=== PATIENT | male | born 1960 | race Caucasian/White ===

== ENCOUNTER → 2016-10-28 | Outpatient (RCR) | payer SELFPAY ==
[~2016-10-28] MED LIST: ASPRIN PO; LANTUS SQ; LISINOPRIL; METF-380 PO; NOVOLOG SQ
== END | disposition home or self-care (01) ==
PROVIDERS: ATTEND Nurse Practitioner Family
DX: M75.02 Adhesive capsulitis of left shoulder (principal)

== ENCOUNTER 2017-01-14 08:01 | Outpatient (RCR) | payer SELFPAY | END 2017-01-14 08:51 | disposition home or self-care (01) | PROVIDERS: ATTEND Nurse Practitioner Family | DX: M75.02 Adhesive capsulitis of left shoulder (principal) ==

== ENCOUNTER → 2017-02-04 | Outpatient (CLI) | payer SELFPAY ==
--- NOTE | 2017-02-05 09:37 | STRESS TEST ---
PROCEDURE PHYSICIAN: SAUL HARDWICK DATE OF PROCEDURE: 02/04/2017 EXERCISE STRESS TEST REPORT: REFERRING PHYSICIAN: Dr. Ochoa INDICATION: Shortness of breath. PROCEDURE DETAILS: The patient was brought to the stress lab after informed consent was taken. Exercise stress test was performed according to the [facility] protocol. Baseline EKG showed sinus rhythm with no ST-T wave abnormalities. Heart rate was 59 bpm. Blood pressure was 100/77 mmHg. The patient exercise for 10 minutes 59 seconds and achieved 12.5 METs. The patient achieved 146 bpm which is 90% of the maximum predicted heart rate response. Blood pressure was 214/67 mmHg. The patient did not have any ST-T wave changes. The stress test was stopped secondary to fatigue. The patient did not have any chest pain. There were no arrhythmias noted. CONCLUSION: 1. Excess stress test is negative for ischemia. 2. Hypertensive response to exercise. 3. Good functional capacity. 4. The patient was requested to take an extra lisinopril 20 mg as soon as he gets home. His blood pressure on discharge from the stress lab was 169/76 mmHg. He was also requested to call his primary care physician tomorrow for further instruction. Job ID: [id number] Dictated Date: 02/04/2017 16:13:28 Manager Valuation Date: 02/05/2017 09:32:23 / lula
== END ==
LOC: CARD 09:56
PROVIDERS: ATTEND Internal Medicine Interventional Cardiology
DX: R06.09 Other forms of dyspnea (principal); R07.89 Other chest pain
CPT/HCPCS: 93017

== ENCOUNTER 2018-11-02 09:17 | Outpatient (RCR) | payer OTHER | END 2018-11-07 | disposition home or self-care (01) | PROVIDERS: ATTEND Nurse Practitioner Family | DX: M25.511 Pain in right shoulder (principal); E11.9 Type 2 diabetes mellitus without complications; Z98.890 Other specified postprocedural states ==

== ENCOUNTER → 2020-09-06 | Outpatient (CLI) | payer SELFPAY ==
[~2020-09-06] VITALS: Ht 188 cm; Wt 84.0 kg
[~2020-09-06] MED LIST changes: +BAMLANIVIMAB (NON FORM) 700 MG in NS (IVPB) 100 ML IV ONE; +EPINEPHrine INJECTION 1 MG/ML AMP IM PRN; +diphenhydrAMINE 50 MG/ML INJ (BENADRYL) IV PRN
[2020-09-06 07:50] VITALS: BP 118/60
[2020-09-06 09:30] VITALS: BP 121/70
== END ==
LOC: INFUSION 07:52
PROVIDERS: ATTEND Family Medicine
DX: Z23 Encounter for immunization (principal); U07.1 COVID-19

== ENCOUNTER 2021-05-29 16:33 | Emergency (ER) | payer SELFPAY ==
[~2021-05-29] VITALS: Ht 187 cm; Wt 86.0 kg
[~2021-05-29 16:33] MED LIST changes: -BAMLANIVIMAB (NON FORM) 700 MG in NS (IVPB) 100 ML IV ONE; -EPINEPHrine INJECTION 1 MG/ML AMP IM PRN; -diphenhydrAMINE 50 MG/ML INJ (BENADRYL) IV PRN
[2021-05-29 16:35] VITALS: BP 156/98
[2021-05-29] MEDS ORDERED: TETANUS,DIPTH,PERTUSS P/F (BOOSTRIX) 0.5 ML VIAL IM ONE (16:45)
--- NOTE | 2021-05-29 16:45 | ED Headache ---
General Stated Complaint: HEAD INJURY Source: patient Exam Limitations: no limitations (XIANG ANDINO APRN) History of Present Illness Date Seen by Provider: May 29, 2021 Time Seen by Provider: 16:41 Initial Comments To ER by private vehicle accompanied by his son with reports of a head injury. He states that he did not duck enough and he walked into a piece of metal hanging down from a farm implement that he was beneath. Tetanus is not up-to-date. No loss of consciousness. He recalls all events. No nausea or vomiting. Does have a headache localized to the right side where the laceration is at. Denies any neck pain or tingling in his hands or feet. He is on a baby aspirin. Timing/Duration: 1-3 hours Severity/Quality: moderate Location: frontal Prior Headaches/Recent Trauma: no recent headache/trauma Associated Symptoms: denies symptoms (XIANG ANDINO APRN) Allergies and Home Medications Allergies Coded Allergies: adhesive (Verified Allergy, Unknown, 05/29/21) Patient Home Medication List Home Medication List Reviewed: Yes (XIANG ANDINO APRN) Metformin Hcl (Metformin 1000 Mg) 1,000 Mg Tablet, 1 EACH PO BID WITH MEALS, (Reported) Entered as Reported by: SANGEETA LACY on 08/24/111653 [Asprin] , 325 MG PO DAILY, (Reported) Entered as Reported by: SANGEETA LACY on 08/24/111658 [Lantus] , 10 UNIT SQ DAILY, (Reported) Entered as Reported by: SANGEETA LACY on 08/24/11 1700 [Lisinopril] , 5 MG DAILY, (Reported) Entered as Reported by: SANGEETA LACY on 08/24/111653 [Novolog] , 4 UNIT SQ TID, (Reported) Entered as Reported by: SANGEETA LACY on 08/24/111658 Review of Systems Review of Systems Constitutional: see HPI Eyes: No Symptoms Reported Ears, Nose, Mouth, Throat: no symptoms reported Respiratory: no symptoms reported Cardiovascular: no symptoms reported Genitourinary: no symptoms reported Musculoskeletal: no symptoms reported Skin: no symptoms reported Psychiatric/Neurological: No Symptoms Reported (XIANG ANDINO APRN) Physical Exam Vital Signs Vital Signs - First Documented 05/29/21 16:35 Temp 36.3 Pulse 66 Resp 16 B/P (MAP) 156/98 (117) Pulse Ox 97 O2 Delivery Room Air (COOKIE LEDESMA MD) Vital Signs Capillary Refill : (XIANG ANDINO APRN) Height, Weight, BMI Height: '" Weight: lbs. oz. kg; BMI Method: General Appearance: WD/WN, no apparent distress, other (Alert and oriented GCS 15. There is a 2.5 cm laceration to the right side of the frontal scalp without active bleeding. No hemotympanum or regan sign.) HEENT: PERRL/EOMI, normal ENT inspection, TMs normal Neck: non-tender, full range of motion Cardiovascular: regular rate, rhythm, no murmur Respiratory: no respiratory distress, no accessory muscle use Gastrointestinal: normal bowel sounds, non tender Extremities: normal range of motion, non-tender Psychiatric: alert, oriented x 3 Crainal Nerves: normal hearing, normal speech Skin: normal color, warm/dry (XIANG ANDINO APRN) Procedures/Interventions Wound Location: Scalp Wound Length (cm): 2.5 Wound's Depth, Shape: linear, sub Q Wound Explored: clean Anesthesia: Lidocaine w/ Epi Volume Anesthetic (ccs): 2 Staple Repair: Stapler 35W 6 aditi (XIANG ANDINO APRN) Progress/Results/Core Measures Results/Orders Medications Given in ED Current Medications Medications Dose Ordered Sig/Jose Route Start Time Stop Time Status Last Admin Dose Admin Diphtheria/ Tetanus/Acell Pertussis 0.5 ml ONCE ONCE IM 05/29/21 16:45 05/29/21 16:46 DC 05/29/21 17:01 0.5 ML (COOKIE LEDESMA MD) Vital Signs/I&O 05/29/21 16:35 Temp 36.3 Pulse 66 Resp 16 B/P (MAP) 156/98 (117) Pulse Ox 97 O2 Delivery Room Air (COOKIE LEDESMA MD) Departure Impression Primary Impression: Scalp laceration Disposition: HOME, SELF-CARE Condition: Stable Departure-Patient Inst. Decision time for Depature: 16:44 (XIANG ANDINO APRN) Referrals: CHAYA CHURCH DO (PCP/Family) Primary Care Physician Patient Instructions: Laceration Repair With [place] (DC) Add. Discharge Instructions: 1. you can shower starting tonight. Return to ER to have the stitches removed in 5-7 days. Return to ER before then for any confusion, nausea/vomiting, severe headache. ATTENDING PHYSICIAN NOTE: I was physically present as attending physician in the emergency department during the care of this patient, but I was not directly involved in the decision making or delivery of care for this patient. (COOKIE LEDESMA MD) XIANG ANDINO APRN May 29, 2021 16:45 COOKIE LEDESMA MD May 29, 2021 18:30
== END 2021-05-29 17:03 | disposition home or self-care (01) ==
LOC: EDUNIT# 16:33 → ER 16:36
DX: S01.01XA Laceration without foreign body of scalp, initial encounter (principal); Z23 Encounter for immunization; Z79.82 Long term (current) use of aspirin; W26.8XXA Contact with other sharp object(s), not elsewhere classified, initial encounter
CPT/HCPCS: 90715; 99284

== ENCOUNTER 2021-06-04 16:35 | Emergency (ER) | payer SELFPAY ==
[~2021-06-04] VITALS: Ht 177.8 cm; Wt 78.5 kg
[2021-06-04 16:40] VITALS: BP 144/83
== END 2021-06-04 16:50 | disposition home or self-care (01) ==
LOC: EDUNIT# 16:35 → ER 16:37
DX: Z48.02 Encounter for removal of sutures (principal)

== ENCOUNTER 2021-12-29 05:35 | Outpatient (CLI) | payer SELFPAY ==
[~2021-12-29] VITALS: Ht 188 cm; Wt 84.8 kg
[2021-12-29] MEDS ORDERED: INSU300I SQ (11:30)
[2021-12-29] MEDS ORDERED: VITA0.4T18 PO (11:30)
[2021-12-29] MEDS ORDERED: NF-VITD400 PO (11:30)
[2021-12-29] MEDS ORDERED: SIMV10TA26 PO (11:30)
[2021-12-29] MEDS ORDERED: ASPI-999 PO (11:30)
[2021-12-29] MEDS ORDERED: FISH1CAP15 PO (11:30)
[2021-12-29] MEDS ORDERED: ZINC50TA51 PO (11:30)
== END 2021-12-29 11:40 | disposition home or self-care (01) ==
LOC: PREOP 05:35
PROVIDERS: ATTEND Surgery
DX: Z01.818 Encounter for other preprocedural examination (principal)

== ENCOUNTER 2022-01-05 06:47 | Day surgery (SDC) | payer SELFPAY ==
[2022-01-05] VITALS (7 sets, daily range): BP systolic 94–137; BP diastolic 57–92
[~2022-01-05] VITALS: Ht 188 cm; Wt 84.8 kg
[~2022-01-05 06:47] MED LIST changes: +ASPI-999 PO; +FISH1CAP15 PO; +INSU300I SQ; +NF-VITD400 PO; +SIMV10TA26 PO; +VITA0.4T18 PO; +ZINC50TA51 PO
[2022-01-05] MEDS ORDERED: LACTATED RINGERS 1,000 ML IV STA (07:00)
[2022-01-05] MEDS ORDERED: MIDAZOLAM 2 MG/2 ML (VERSED) VIAL ONE (07:17)
[2022-01-05] MEDS ORDERED: PROPOFOL INJECTION 50 ML IV ONE (07:18)
--- NOTE | 2022-01-05 07:52 | Progress Note-Pre Operative ---
Pre-Operative Progress Note H&P Reviewed The H&P was reviewed, patient examined and no changes noted. Date Seen by Provider: Jan 05, 2022 Time Seen by Provider: 07:52 Date H&P Reviewed: Jan 05, 2022 Time H&P Reviewed: 07:52 Pre-Operative Diagnosis: rectal pain, family history colon cancer ALEKSANDR SHORT DO Jan 05, 2022 07:52
--- NOTE | 2022-01-05 08:38 | Progress Note-Post Operative ---
Post-Operative Progess Note Surgeon (s)/Reviewer Sales (s) Surgeon ALEKSANDR SHORT DO Reviewer Sales: na Pre-Operative Diagnosis rectal pain, family history colon cancer Post-Operative Diagnosis normal colon Procedure & Operative Findings Date of Procedure 01/05/22 Procedure Performed/Findings colonoscopy Anesthesia Type per triage rn Estimated Blood Loss Estimated blood loss (mL): none Specimens/Packing Specimens Removed na ALEKSANDR SHORT DO Jan 05, 2022 08:38
--- NOTE | 2022-01-05 08:39 | Discharge Inst-Simple/Standard ---
Discharge Inst-Standard Patient Instructions/Follow Up Plan of Care/Instructions/FU: Raquel 5 years. Any issues before that be seen at that time. Activity as Tolerated: Yes Discharge Diet: Regular Diet ALEKSANDR SHORT DO Jan 05, 2022 08:39
--- NOTE | 2022-01-05 10:45 | Anesthesia-General Post-Op ---
MAC Patient Condition Mental Status/LOC: Same as Preop Cardiovascular: Satisfactory Nausea/Vomiting: Absent Respiratory: Satisfactory Pain: Controlled Complications: Absent Post Op Complications Complications None Follow Up Care/Instructions Patient Instructions None needed. Anesthesiology Discharge Order Discharge Order Patient is doing well, no complaints, stable vital signs, no apparent adverse anesthesia problems. No complications reported per nursing. MERVIN MUÑOZ OFFICE SERVICES SPECIALIST Jan 05, 2022 10:45
--- NOTE | 2022-01-05 15:15 | OPERATIVE REPORT ---
DATE OF SERVICE: 01/05/2022 PREOPERATIVE DIAGNOSIS: Family history of colon cancer, rectal pain. POSTOPERATIVE DIAGNOSIS: Normal colon. PROCEDURE: Colonoscopy. SURGEON: Aleksandr García DO ANESTHESIA: Per RN CLINICAL APPEALS. ESTIMATED BLOOD LOSS: None. COMPLICATIONS: None. INDICATIONS: The patient is a 61-year-old male with rectal pain, and family history of colon cancer. He understands risks and benefits of procedure and wishes to proceed. Consent was signed in the chart. DESCRIPTION OF PROCEDURE: The patient was taken to the endoscopy suite, placed in left lateral recumbent position. Timeout was performed. Digital rectal exam was performed. No palpable polyps, masses or ulcerations. Slightly enlarged prostate. Scope was inserted into the rectum, where it advanced all the way to cecum with minimal difficulty. Prep was adequate with irrigation and suction. Scope was then slowly retracted back. No polyps, masses or ulcerations within the cecum, ascending, transverse, descending and sigmoid colon. Once in the rectum, scope was retroflexed noting no other pathology. Scope was returned to its normal position, slowly withdrawn until completely removed. The patient tolerated the procedure well without any complications, taken to recovery room in stable condition. RECOMMENDATIONS: The patient will need repeat colonoscopy in five years due to family history of colon cancer. Any issues before that be reevaluated at that time. Job ID: [id number] DocumentID: [id number] Dictated Date: 01/05/2022 09:04:59 Facility Service Manager Date: 01/05/2022 15:14:55 Dictated By: ALEKSANDR GARCÍA DO
== END 2022-01-05 09:13 | disposition home or self-care (01) ==
LOC: ENDO 06:47
PROVIDERS: ATTEND Surgery
DX: K62.89 Other specified diseases of anus and rectum (principal); N40.0 Benign prostatic hyperplasia without lower urinary tract symptoms; E11.40 Type 2 diabetes mellitus with diabetic neuropathy, unspecified; Z79.4 Long term (current) use of insulin; Z79.84 Long term (current) use of oral hypoglycemic drugs; Z79.82 Long term (current) use of aspirin; Z88.8 Allergy status to other drugs, medicaments and biological substances; Z80.0 Family history of malignant neoplasm of digestive organs